=== PATIENT | female | born 2000 | race Caucasian/White ===

== ENCOUNTER → 2018-04-18 | Outpatient (CLI) | payer OTHER | LOC: BMCIMAGING 15:18 → EDSTATUS 15:19 → BMCIMAGING 15:20 | PROVIDERS: ATTEND Emergency Medicine | DX: R50.9 Fever, unspecified (principal) ==

== ENCOUNTER 2018-06-15 20:19 | Emergency (ER) | payer OTHER ==
[2018-06-15] MEDS ORDERED: NS 2,000 ML IV ONE (20:34)
--- NOTE | 2018-06-15 20:34 | EDPHY ---
H & P Stated Complaint: near syncope, didn't eat much today Time Seen by Provider: 06/15/18 20:34 HPI/ROS: HPI CHIEF COMPLAINT: Lightheadedness. HISTORY OF PRESENT ILLNESS: Very pleasant 18-year-old female otherwise healthy , presents emergency room feeling lightheaded. Patient states she was at she pulled a tonight was getting ready dinner sat down and got very lightheaded. Denies any chest pain or shortness of breath denies syncope. Denies pleuritic pain. She does state that she has increased her caffeine intake recently, additionally has been taking Adderall as it his finals week it has been study with little sleep. She arrives to emergency room hemodynamically stable no acute distress resting comfortably. States she does feel better. Past Medical History: No significant medical history except for asthma Past Surgical History: No significant surgical history Social History: Denies drugs alcohol tobacco. Family History: Noncontributory ROS REVIEW OF SYSTEMS: 10 Systems were reviewed and negative with the exception of the elements mentioned in the history of present illness. Exam Constitutional appears well nontoxic triage nursing summary reviewed, vital signs reviewed, awake/alert. Eyes normal conjunctivae and sclera, EOMI, PERRLA. HENT normal inspection, atraumatic, moist mucus membranes, no epistaxis, neck supple/ no meningismus, no raccoon eyes. Respiratory clear to auscultation bilaterally, normal breath sounds, no respiratory distress, no wheezing. Cardiovascular rate normal, regular rhythm, no murmur, no edema, distal pulses normal. Gastrointestinal soft, non-tender, no rebound, no guarding, normal bowel sounds, no distension, no pulsatile mass. Genitourinary no CVA tenderness. Musculoskeletal no midline vertebral tenderness, full range of motion, no calf swelling, no tenderness of extremities, no meningismus, good pulses, neurovascularly intact. Skin pink, warm, & dry, no rash, skin atraumatic. Neurologic awake, alert and oriented x 3, AAOx3, moves all 4 extremities equally, motor intact, sensory intact, CN II-XII intact, normal cerebellar, normal vision, normal speech. Psychiatric normal mood/affect. Heme/Lymph/Immune no lymphadenopathy. Differential Diagnosis: Includes but is not limited to in a particular order dehydration, lightheadedness, electrolyte disturbance, cardiac arrhythmia, caffeine excessive intake, Adderall Medical Decision Making: Plan for this patient IV establishment IV fluid bolus 2 L normal saline, EKG, basic electrolytes, troponin, test and re- evaluate. Re-evaluation: EKG interpretation by me on record in [email or web address] system. Impression time of EKG 2042, sinus rhythm rate of 93 without any signs of acute ischemia or cardiac arrhythmia specifically no WPW or Brugada. No acute ischemia. 2206: Patient has had 2 L of fluid. Resting comfortably. No acute distress. She feels much better after 2 L of fluid. I believe her lightheadedness is contributed to Adderall use, caffeine intake, poor sleep, studying for final exams leading to lightheadedness and almost passing out today. I do recommend she stays well hydrated drink lots of fluids. Return precautions discussed with her. She ambulated well throughout the emergency room without any difficulty she is eager for discharge. Source: Patient - Personal History Current Tetanus/Diphtheria Vaccine: Yes Current Tetanus Diphtheria and Acellular Pertussis (TDAP): Yes - Medical/Surgical History Hx Asthma: No Hx Chronic Respiratory Disease: No Hx Diabetes: No Hx Cardiac Disease: No Hx Renal Disease: No Hx Cirrhosis: No Hx Alcoholism: No Hx HIV/AIDS: No Hx Splenectomy or Spleen Trauma: No Other PMH: possible high BP - Social History Smoking Status: Never smoked Constitutional: Initial Vital Signs Temperature (C) 36.4 C 06/15/18 20:29 Heart Rate 103 H 06/15/18 20:29 Respiratory Rate 20 06/15/18 20:29 Blood Pressure 140/95 H 06/15/18 20:29 O2 Sat (%) 96 06/15/18 20:29 O2 Delivery Mode Room Air Allergies/Adverse Reactions: No Known Allergies Allergy (Unverified 06/15/18 20:21) Home Medications: Medication Instructions Recorded NK [No Known Home Meds] 06/15/18 Medical Decision Making - Data Points Laboratory Results: Laboratory Results 06/15/18 20:45 06/15/18 20:45 06/15/18 06/15/18 06/15/18 20:46 20:45 20:45 WBC RBC Hgb Hct MCV MCH MCHC RDW Plt Count MPV Neut % (Auto) Lymph % (Auto) [place] % (Auto) Eos % (Auto) Baso % (Auto) Nucleat RBC Rel Count Absolute Neuts (auto) Absolute Lymphs (auto) Absolute Monos (auto) Absolute Eos (auto) Absolute Basos (auto) Absolute Nucleated RBC Immature Gran % Immature Gran # Sodium 136 mEq/L mEq/L (135-145) Potassium 4.0 mEq/L mEq/L (3.5-5.2) Chloride 99 mEq/L mEq/L (97-110) Carbon Dioxide 22 mEq/l mEq/l (22-31) Anion Gap 15 mEq/L H mEq/L (6-14) BUN 23 mg/dL mg/dL (7-23) Creatinine 0.9 mg/dL mg/dL (0.6-1.0) Estimated GFR > 60 Glucose 192 mg/dL H mg/dL (70-100) Calcium 10.0 mg/dL mg/dL (8.5-10.4) POC Troponin I 0.01 ng/mL ng/mL (0.00-0.08) Beta HCG, Qual NEGATIVE 06/15/18 20:45 WBC 10.68 10^3/uL H 10^3/uL (3.80-9.50) RBC 5.02 10^6/uL 10^6/uL (4.18-5.33) Hgb 15.0 g/dL g/dL (12.6-16.3) Hct 44.7 % % (38.0-47.0) MCV 89.0 fL fL (81.5-99.8) MCH 29.9 pg pg (27.9-34.1) MCHC 33.6 g/dL g/dL (32.4-36.7) RDW 12.6 % % (11.5-15.2) Plt Count 230 10^3/uL 10^3/uL (150-400) MPV 10.4 fL fL (8.7-11.7) Neut % (Auto) 62.9 % % (39.3-74.2) Lymph % (Auto) 30.1 % % (15.0-45.0) [place] % (Auto) 4.8 % % (4.5-13.0) Eos % (Auto) 1.3 % % (0.6-7.6) Baso % (Auto) 0.7 % % (0.3-1.7) Nucleat RBC Rel Count 0.0 % % (0.0-0.2) Absolute Neuts (auto) 6.72 10^3/uL H 10^3/uL (1.70-6.50) Absolute Lymphs (auto) 3.22 10^3/uL H 10^3/uL (1.00-3.00) Absolute Monos (auto) 0.51 10^3/uL 10^3/uL (0.30-0.80) Absolute Eos (auto) 0.14 10^3/uL 10^3/uL (0.03-0.40) Absolute Basos (auto) 0.07 10^3/uL 10^3/uL (0.02-0.10) Absolute Nucleated RBC 0.00 10^3/uL 10^3/uL (0-0.01) Immature Gran % 0.2 % % (0.0-1.1) Immature Gran # 0.02 10^3/uL 10^3/uL (0.00-0.10) Sodium Potassium Chloride Carbon Dioxide Anion Gap BUN Creatinine Estimated GFR Glucose Calcium POC Troponin I Beta HCG, Qual Medications Given: Discontinued Medications Sodium Chloride (Ns) 2,000 mls @ 0 mls/hr IV EDNOW ONE; Wide Open PRN Reason: Protocol Stop: 06/15/18 20:35 Last Admin: 06/15/18 20:48 Dose: 2,000 mls Point of Care Test Results: Chemistry 06/15/18 20:46 POC Troponin I 0.01 ng/mL ng/mL (0.00-0.08) Departure - Departure Disposition: Home, Routine, Self-Care Clinical Impression: Lightheaded Condition: Good Instructions: Near Syncope (ED), Lightheadedness (ED) Additional Instructions: 1. Stay well-hydrated drink lots of fluids. 2. Refrain from large amounts of caffeine, refrain from Adderall 3. Return to the ER for worsening symptoms.
[2018-06-15 20:53] LABS: PLATELET COUNT 230 10^3/uL (150-400)
[2018-06-15 22:18] VITALS: BP 116/67
--- NOTE | 2018-06-15 22:35 | CPEKG ---
Test Reason : OPEN Blood Pressure : / mmHG Vent. Rate : 093 BPM Atrial Rate : 095 BPM P-R Int : 131 ms QRS Dur : 075 ms QT Int : 351 ms P-R-T Axes : 086 081 072 degrees QTc Int : 437 ms Sinus rhythm Confirmed by Jason Almazan ([id number]) on 06/15/2018 10:34:04 PM Referred By: Confirmed By:Jason Almazan
== END 2018-06-15 22:21 | disposition home or self-care (01) ==
DX: R42 Dizziness and giddiness (principal); E86.9 Volume depletion, unspecified; J45.909 Unspecified asthma, uncomplicated
CPT/HCPCS: 84484-ER